=== PATIENT | male | born 1985 | race Caucasian/White ===

== ENCOUNTER 2022-08-25 12:01 | Emergency (ER) | payer MEDICAID ==
[~2022-08-25] VITALS: Ht 165.1 cm; Wt 75.0 kg
[2022-08-25 12:12] VITALS: BP 155/79
[2022-08-25] MEDS ORDERED: BACITRACIN ZINC OINT UDPKT TOP ONE (12:45)
[2022-08-25] MEDS ORDERED: TETANUS, DIPHTHERIA, PERTUSSIS VAC/PF 0.5ML (>10YR OLD) IM ONE (12:45)
[2022-08-25] MEDS ORDERED: ACETAMINOPHEN 325MG TABLET PO ONE (12:45)
[2022-08-25] MEDS ORDERED: LIDOCAINE HCL/PF 1% 10 MG/ML 5ML VIAL INFIL ONE (12:45)
[2022-08-25] MEDS ORDERED: BO1 TP (14:32)
== END 2022-08-25 14:56 | disposition home or self-care (01) ==
LOC: ER 12:01
DX: S61.412A Laceration without foreign body of left hand, initial encounter (principal); W45.8XXA Other foreign body or object entering through skin, initial encounter; Y93.89 Activity, other specified; Y92.89 Other specified places as the place of occurrence of the external cause; Y99.8 Other external cause status
CPT/HCPCS: 12002; 73130; 90471; 90715; 99283; J3490; Z7610

== ENCOUNTER 2022-09-08 11:35 | Emergency (ER) | payer MEDICAID ==
[~2022-09-08] VITALS: Ht 160 cm; Wt 87.0 kg
[~2022-09-08 11:35] MED LIST: BO1 TP
[2022-09-08 11:44] VITALS: BP 130/93
[2022-09-08] MEDS ORDERED: BO1 TP (12:01)
== END 2022-09-08 12:40 | disposition home or self-care (01) ==
LOC: ER 11:35
DX: S61.412D Laceration without foreign body of left hand, subsequent encounter (principal); X58.XXXD Exposure to other specified factors, subsequent encounter
CPT/HCPCS: 99282